=== PATIENT | female | born 2000 | race Caucasian/White ===

== ENCOUNTER 2022-03-05 18:17 | Emergency (ER) | payer OTHER ==
[2022-03-05 19:53] LABS: Urine Blood 2+ (Negative); Urine Glucose Negative (Negative); Urine Protein Negative (Negative)
--- NOTE | 2022-03-05 20:05 | RAD REPORT ---
EXAM DESCRIPTION: US - Extrem Venous W Compress Derick - 03/05/2022 7:43 pm CLINICAL HISTORY: Pain COMPARISON: None. TECHNIQUE: Real-time sonographic evaluation of the bilateral lower extremity common femoral, superfi cial femoral, popliteal and posterior tibial veins was performed. FINDINGS: Normal compressibility, flow augmentation, phasic flow and spontaneous flow are identified in the left and right lower extremity common femoral, superficial femoral, popliteal and posterior t ibial veins. No intraluminal filling defects seen. IMPRESSION: No DVT in either lower extremity.
--- NOTE | 2022-03-05 20:25 | RAD REPORT ---
EXAM DESCRIPTION: CT - Chest For Pe Angio - 03/05/2022 8:08 pm CLINICAL HISTORY: dyspnea COMPARISON: No comparisons TECHNIQUE: Dynamically enhanced 3 mm thick images of the chest were obtained during administration o f approximately 150mL Isovue 370 IV contrast. Coronal and oblique MIP reconstruction images were gene rated and reviewed. Exam utilizes a protocol to evaluate the pulmonary arterial tree. All CT scans are performed using dose optimization technique as appropriate and may include automated exposure control or mA/KV adjustment according to patient size. FINDINGS: No pulmonary emboli are identified. The aorta as imaged shows no acute or suspicious finding. No pericardial thickening or effusion. No infiltrate or mass in the lung parenchyma. No pleural effusion or pleural thickening. No mediastinal or hilar suspicious masses. No chest wall masses or abnormal axillary lymphadenopathy. No acute bone findings seen. Artifact is created by the scoliosis rods that extend along the length o f the thoracic spine. IMPRESSION: No pulmonary emboli identified. No other significant or suspicious findings.
--- NOTE | 2022-03-05 20:38 | EDPHYS ---
Physician Documentation [facility] Name: Rain Kc Age: 21 yrs Sex: Female : 2000 Arrival Date: 03/05/2022 Time: 18:18 Bed 11 Private MD: ED Physician Gavin Narvaez HPI: 03/05 19:04 This 21 yrs old Female presents to ER via Ambulatory with complaints of Chest Pain, Leg snw Swelling. 19:04 Onset: The symptoms/episode began/occurred suddenly, and became persistent. Associated snw signs and symptoms: Pertinent positives: SOB, lower ext edema. Modifying factors: The patient symptoms are alleviated by nothing. The patient has not experienced similar symptoms in the past. The patient has not recently seen a physician. Pt on OCP, recent drive to [place] and back. Left greater than right lower ext edema last week. Dad gave fluid pill and edema resolved. Pt was putting supplies up over her head and became very short of breath and felt her heart was racing. Historical: - Allergies: 18:51 No Known Allergies; ss - Home Meds: 18:51 sertraline 50 mg oral tab 1 tab once daily [Active]; ss - PMHx: 18:51 Depressive disorder; Anxiety; ss - PSHx: 18:51 scoliosis sx; ss - Immunization history:: Client reports receiving the 2nd dose of the Covid vaccine. - Social history:: Smoking status: Patient denies any tobacco usage or history of. ROS: 19:03 Eyes: Negative for injury, pain, redness, and discharge, ENT: Negative for injury, snw pain, and discharge, Neck: Negative for injury, pain, and swelling. 19:03 Abdomen/GI: Negative for abdominal pain, nausea, vomiting, diarrhea, and constipation, Back: Negative for injury and pain, : Negative for injury, bleeding, discharge, and swelling, MS/Extremity: Negative for injury and deformity, Skin: Negative for injury, rash, and discoloration, Neuro: Negative for headache, weakness, numbness, tingling, and seizure, Psych: Negative for depression, anxiety, suicide ideation, homicidal ideation, and hallucinations. 19:03 Constitutional: Positive for malaise, lower ext edema and then some SOB. 19:03 Cardiovascular: Positive for palpitations. 19:03 Respiratory: Positive for shortness of breath. Exam: 19:04 Constitutional: This is a well developed, well nourished patient who is awake, alert, snw and in no acute distress. Head/Face: Normocephalic, atraumatic. Eyes: Pupils equal round and reactive to light, extra-ocular motions intact. Lids and lashes normal. Conjunctiva and sclera are non-icteric and not injected. Cornea within normal limits. Periorbital areas with no swelling, redness, or edema. ENT: Nares patent. No nasal discharge, no septal abnormalities noted. Tympanic membranes are normal and external auditory canals are clear. Oropharynx with no redness, swelling, or masses, exudates, or evidence of obstruction, uvula midline. Mucous membranes moist. Neck: Trachea midline, no thyromegaly or masses palpated, and no cervical lymphadenopathy. Supple, full range of motion without nuchal rigidity, or vertebral point tenderness. No Meningismus. Chest/axilla: Normal chest wall appearance and motion. Nontender with no deformity. No lesions are appreciated. Cardiovascular: Regular rate and rhythm with a normal S1 and S2. No gallops, murmurs, or rubs. Normal PMI, no JVD. No pulse deficits. Respiratory: Lungs have equal breath sounds bilaterally, clear to auscultation and percussion. No rales, rhonchi or wheezes noted. No increased work of breathing, no retractions or nasal flaring. Abdomen/GI: Soft, non-tender, with normal bowel sounds. No distension or tympany. No guarding or rebound. No evidence of tenderness throughout. Back: No spinal tenderness. No costovertebral tenderness. Full range of motion. Skin: Warm, dry with normal turgor. Normal color with no rashes, no lesions, and no evidence of cellulitis. MS/ Extremity: Pulses equal, no cyanosis. Neurovascular intact. Full, normal range of motion. Neuro: Awake and alert, GCS 15, oriented to person, place, time, and situation. Cranial nerves II-XII grossly intact. Motor strength 5/5 in all extremities. Sensory grossly intact. Cerebellar exam normal. Normal gait. Psych: Awake, alert, with orientation to person, place and time. Behavior, mood, and affect are within normal limits. Vital Signs: 18:48 BP 128 / 83; Pulse 85; Resp 14; Temp 98.6(O); Pulse Ox 99% on R/A; Weight 124.74 kg; ss Height 5 ft. 9 in. (175.26 cm); Pain 2/10; 19:50 BP 119 / 61; Pulse 67; Resp 18; Pulse Ox 100% on R/A; Pain 2/10; tw5 18:48 Body Mass Index 40.61 (124.74 kg, 175.26 cm) ss MDM: 19:03 Patient medically screened. snw 20:38 Data reviewed: vital signs, nurses notes. Data interpreted: Pulse oximetry: on room air snw is 100 %. Interpretation: normal. Counseling: I had a detailed discussion with the patient and/or guardian regarding: the historical points, exam findings, and any diagnostic results supporting the discharge/admit diagnosis, radiology results, the need for outpatient follow up, to return to the emergency department if symptoms worsen or persist or if there are any questions or concerns that arise at home. Special discussion: Based on the patient's history, exam, and Dx evaluation, there is no indication for emergent intervention or inpatient Tx. It is understood by the patient/guardian that if the Sx's persist or worsen they need to return immediately for re-evaluation. Based on the history and exam findings, there is no indication for further emergent testing or inpatient evaluation. I discussed with the patient/guardian the need to see the primary care provider for further evaluation of the symptoms. 03/05 18:58 Order name: Urine Microscopic Only; Complete Time: 20:42 snw 03/05 19:54 Order name: Urine Dipstick-Ancillary; Complete Time: 19:59 EDMS 03/05 18:58 Order name: CT Chest For PE Angio; Complete Time: 20:36 snw 03/05 18:58 Order name: Urine Dipstick-Ancillary (obtain specimen); Complete Time: 19:57 snw 03/05 18:58 Order name: Urine Test (obtain specimen); Complete Time: 19:57 snw 03/05 18:58 Order name: US Extremity Venous W Compression Derick; Complete Time: 20:09 snw EC:09 Rate is 72 beats/min. Rhythm is irregular, No S1Q3T3. QRS [place] is Normal. T waves are snw Flattened in lead III. Clinical impression: NSR w/ Non-specific ST/T Changes. Administered Medications: No medications were administered Disposition Summary: 03/05/22 20:37 Discharge Ordered Location: Home snw Condition: Stable snw Diagnosis - Shortness of breath snw - Palpitations snw Followup: snw - With: Emergency Department - When: As needed - Reason: Worsening of condition Followup: snw - With: Private Physician - When: 2 - 3 days - Reason: Recheck today's complaints, Continuance of care, Re-evaluation by your physician Discharge Instructions: - Discharge Summary Sheet snw - Palpitations snw - Shortness of Breath, Adult snw - Aspirin and Your Heart snw Forms: - Work release form snw - Medication Reconciliation Form snw - Thank You Letter snw - Antibiotic Education snw - Prescription Opioid Use snw Signatures: Dispatcher [employer] Amber Rubio, EXPLOSION WELDER-C EXPLOSION WELDER-Csnw Argenis Markham RN RN ss
--- NOTE | 2022-03-05 20:38 | ER ---
Nurse's Notes [facility] Name: Rain Kc Age: 21 yrs Sex: Female : 2000 Arrival Date: 03/05/2022 Time: 18:18 Bed 11 Private MD: Diagnosis: Shortness of breath;Palpitations Presentation: 03/05 18:48 Chief complaint: Patient states: L foot swelling x 2 weeks. Pt states, "I thought it ss was just a swollen ankle, but my dad gave me a diuretic and the swelling went down, that was on Adam. I was at work and when I was putting up beer it winded me, and it was hard for me to catch my breath 30 minutes after I was done.". Coronavirus screen: Client denies travel out of the [place] in the last 14 days. Ebola Screen: Patient denies exposure to infectious person. Patient denies travel to an Ebola-affected area in the 21 days before illness onset. Initial Sepsis Screen: Does the patient meet any 2 criteria? No. Patient's initial sepsis screen is negative. Does the patient have a suspected source of infection? No. Patient's initial sepsis screen is negative. Risk Assessment: Do you want to hurt yourself or someone else? Patient reports no desire to harm self or others. Onset of symptoms was February 19, 2022. 18:48 Method Of Arrival: Ambulatory ss 18:48 Acuity: ASYA 3 ss Historical: - Allergies: 18:51 No Known Allergies; ss - Home Meds: 18:51 sertraline 50 mg oral tab 1 tab once daily [Active]; ss - PMHx: 18:51 Depressive disorder; Anxiety; ss - PSHx: 18:51 scoliosis sx; ss - Immunization history:: Client reports receiving the 2nd dose of the Covid vaccine. - Social history:: Smoking status: Patient denies any tobacco usage or history of. Screenin:50 [facility] ED Fall Risk Assessment (Adult) History of falling in the last 3 months, tw5 including since admission No falls in past 3 months (0 pts). Abuse screen: Denies threats or abuse. Denies injuries from another. Nutritional screening: No deficits noted. Tuberculosis screening: No symptoms or risk factors identified. Assessment: 19:49 General: Appears in no apparent distress. Behavior is calm, cooperative, appropriate tw5 for age, Reports. 19:50 Pain: Complains of pain in chest Pain does not radiate. Pain currently is 2 out of 10 tw5 on a pain scale. Pain began 3 hours ago. Cardiovascular: Rhythm is regular. Respiratory: No deficits noted. Vital Signs: 18:48 BP 128 / 83; Pulse 85; Resp 14; Temp 98.6(O); Pulse Ox 99% on R/A; Weight 124.74 kg; ss Height 5 ft. 9 in. (175.26 cm); Pain 2/10; 19:50 BP 119 / 61; Pulse 67; Resp 18; Pulse Ox 100% on R/A; Pain 2/10; tw5 18:48 Body Mass Index 40.61 (124.74 kg, 175.26 cm) ED Course: 18:18 Patient arrived in ED. am2 18:51 Triage completed. ss 18:51 Arm band placed on right wrist. ss 18:56 Amber Vilchis FNP-C is PHCP. snw 18:56 Gavin Narvaez MD is Attending Physician. snw 19:44 US Extremity Venous W Compression Derick In Process Unspecified. EDMS 19:45 Vicky Bowling is Primary Nurse. tw5 19:[address] Scan. tw5 19:50 Patient has correct armband on for positive identification. Placed in gown. Bed in low tw5 position. Call light in reach. Side rails up X 1. Pulse ox on. NIBP on. Door closed. Noise minimized. Lights dimmed. Warm blanket given. Verbal reassurance given. 19:50 Inserted saline lock: 20 gauge in right antecubital area, using aseptic technique. tw5 Patient maintains SpO2 saturation greater than 95% on room air. 19:57 Urine Microscopic Only Sent. tw5 20:10 CT Chest For PE Angio In Process Unspecified. EDMS 20:55 No provider procedures requiring assistance completed. IV discontinued, intact, tw5 bleeding controlled, No redness/swelling at site. Pressure dressing applied. Administered Medications: No medications were administered Medication: 19:50 VIS not applicable for this client. tw5 Outcome: 20:37 Discharge ordered by . snw 20:55 Discharged to home ambulatory. tw5 20:55 Condition: stable 20:55 Discharge instructions given to patient, Instructed on discharge instructions, Demonstrated understanding of instructions, follow-up care. 20:56 Patient left the ED. tw5 Signatures: Dispatcher [employer] EDAmber Chau, MARCELA-C TANK WELDER-Jenniferw Argenis Markham RN RN Osiris Arreola Tiffany tw5
[2022-03-05 20:41] LABS: Calcium Oxalate Crystals- Ur Many /HPF (None Seen); Urine Bacteria <20 /HPF (<20); Urine Mucus Slight /HPF (None Seen); Urine RBC <5 /HPF (None Seen)
[2022-03-05 21:33] VITALS: TEMP 98.6
[2022-03-05 21:34] VITALS: BP 119/61; O2SAT 100
--- NOTE | 2022-03-06 17:44 | EKG ---
Test Date: 2022-03-05 Test Time: 18:58:02 Accounts Receivable Coordinator: RADHA MEASUREMENT RESULTS: Intervals: Rate: 72 HI: 114 QRSD: 88 QT: 396 QTc: 433 [place]: P: 50 HI: 114 QRS: 48 T: 32 INTERPRETIVE STATEMENTS: Normal sinus rhythm with sinus arrhythmia Possible Left atrial enlargement Borderline ECG No previous ECG available for comparison Electronically Signed On 03-06-22 17:43:15 ONION FARMER by Rodney Foster
== END 2022-03-05 20:56 | disposition home or self-care (01) ==
LOC: ER 18:17
DX: R06.02 Shortness of breath (principal); R00.2 Palpitations; F32.A Depression, unspecified
CPT/HCPCS: 71275; 93970; Q9967; 81003; 81015; 93005